=== PATIENT | male | born 1995 | race Caucasian/White ===

== ENCOUNTER 2018-03-16 19:47 | Emergency (ER) | payer OTHER ==
[~2018-03-16] VITALS: Ht 177.8 cm; Wt 113.4 kg
[2018-03-16] MEDS ORDERED: HYDROCODONE/APAP 10MG-325MG TAB PO ONE (20:00)
[2018-03-16] MEDS ORDERED: HYDROCODONE/APAP 10MG-325MG TAB ONE (20:03)
--- NOTE | 2018-03-16 20:25 | Diagnostic Imaging Report ---
LEFT KNEE - 3 VIEWS HISTORY: Pain, felt pop COMPARISON: None available. FINDINGS: Bones: No acute displaced fracture. Osseous alignment is within normal limits. Joints: The joint spaces are well-maintained. Soft tissues: The soft tissues appear unremarkable. IMPRESSION: No acute radiographic abnormality. If signs and symptoms persist, a follow-up nonemergent MRI of the knee without contrast may be warranted to further evaluate for internal derangement. Signed by: Dr. Keo Caro D.O., M.M.M. on 03/16/2018 8:21 PM
== END 2018-03-16 20:58 | disposition home or self-care (01) ==
LOC: ER 19:47
DX: M25.562 Pain in left knee (principal); S83.92XA Sprain of unspecified site of left knee, initial encounter; X50.1XXA Overexertion from prolonged static or awkward postures, initial encounter; Y99.0 Civilian activity done for income or pay
CPT/HCPCS: 99284